=== PATIENT | female | born 1980 | race Caucasian/White ===

== ENCOUNTER 2022-05-01 10:44 | Outpatient (CLI) | payer OTHER, SELFPAY | END 2022-05-01 10:45 | disposition home or self-care (01) | LOC: RAD 10:56 → INJ CL 11:06 | PROVIDERS: PCP Nurse Practitioner Family; Visit Provider Family Medicine | DX: M51.36 Other intervertebral disc degeneration, lumbar region (principal); M54.16 Radiculopathy, lumbar region | CPT/HCPCS: 62323; J0702; Q9966 ==

== ENCOUNTER 2024-05-19 10:13 | Outpatient (CLI) | payer BC, SELFPAY | END 2024-05-19 10:14 | disposition home or self-care (01) | LOC: INJ CL 10:15 | PROVIDERS: PCP Nurse Practitioner Family; Visit Provider Family Medicine | DX: M54.16 Radiculopathy, lumbar region (principal); M51.369 Other intervertebral disc degeneration, lumbar region without mention of lumbar back pain or lower extremity pain | CPT/HCPCS: 62323; J0702; Q9966 ==